=== PATIENT | female | born 1990 | race Caucasian/White ===

== ENCOUNTER 2018-09-20 17:08 | Emergency (ER) | payer OTHER ==
[2018-09-20 17:26] VITALS: BP 145/90
--- NOTE | 2018-09-20 18:12 | UC ---
Complaint Female HPI - HPI Summary HPI Summary: 28-year-old woman coming to clinic today with a chief complaint of dysuria and urinary frequency. Started in the last 24 hours. She has a history of recurrent urinary tract infections and this feels like a UTI. No fevers or chills no flank pain. Mild suprapubic cramping. She did try to drink plenty of fluids but the condition is not getting better. No concern of STI. - History Of Current Complaint Chief Complaint: UCGU Stated Complaint: POSS UTI Time Seen by Provider: 09/20/18 17:54 Hx Last Menstrual Period: [id number] Pain Intensity: 3 - Allergies/Home Medications Allergies/Adverse Reactions: Allergies Allergy/AdvReac Type Severity Reaction Status Date / Time No Known Allergies Allergy Verified 09/20/18 17:26 Home Medications: Home Medications Ibuprofen TAB* [Motrin TAB* 600 MG] 600 mg PO Q6H PRN 09/20/18 [History Confirmed 09/20/18] Nuvaring Vaginal Ring 1 09/20/18 [History] PMH/Surg Hx/FS Hx/Imm Hx Other GI/ History: recurrent UTIs - Surgical History Surgical History: Yes Surgery Procedure, Year, and Place: wisdom teeth - Family History Known Family History: Positive: None - Social History Alcohol Use: Daily Substance Use Type: None Smoking Status (MU): Never Smoked Tobacco Review of Systems Constitutional: Negative Skin: Negative Eyes: Negative ENT: Negative Respiratory: Negative Cardiovascular: Negative Gastrointestinal: Negative Genitourinary: Dysuria, Frequency, Urgency Motor: Negative Neurovascular: Negative Musculoskeletal: Negative Neurological: Negative Psychological: Negative Is Patient Immunocompromised?: No All Other Systems Reviewed And Are Negative: Yes Physical Exam Triage Information Reviewed: Yes Appearance: Well-Appearing, No Pain Distress, Well-Nourished Vital Signs: Initial Vital Signs Temp 98.0 F 09/20/18 17:23 Pulse 70 09/20/18 17:23 Resp 16 09/20/18 17:23 BP 145/90 09/20/18 17:23 Pulse Ox 100 09/20/18 17:23 Neck exam: Normal Neck: Positive: Supple Respiratory: Positive: No respiratory distress Abdomen Description: Positive: Nontender, Soft. Negative: CVA Tenderness (R), CVA Tenderness (L) Musculoskeletal Exam: Normal Musculoskeletal: Positive: Strength Intact, ROM Intact Neurological Exam: Normal Neurological: Positive: Alert, Muscle Tone Normal Psychological Exam: Normal Psychological: Positive: Age Appropriate Behavior Skin Exam: Normal Complaint Female Dx - Differential Dx/Diagnosis Provider Diagnoses: UTI Discharge - Sign-Out/Discharge Documenting (check all that apply): Patient Departure All imaging exams completed and their final reports reviewed: No Studies - Discharge Plan Condition: Stable Disposition: HOME Prescriptions: Sulfamethox/Trimethoprim DS* [Bactrim DS 800/160 TAB*] 1 tab PO BID #14 tab Patient Education Materials: Urinary Tract Infection in Women (ED) Referrals: Darvin De Anda MD [Primary Care Provider] - Additional Instructions: FOLLOW UP WITH YOUR DOCTOR IF NOT COMPLETELY IMPROVED. GET RECHECKED FOR ANY WORSENING OF YOUR CONDITION OR QUESTIONS OR CONCERNS. - Billing Disposition and Condition Condition: STABLE Disposition: Home
== END 2018-09-20 18:24 | disposition home or self-care (01) ==
LOC: UCEAST 17:08
DX: N39.0 Urinary tract infection, site not specified (principal)
CPT/HCPCS: 81003; 84702; 87086; 87088; 99212; G0463

== ENCOUNTER 2019-08-16 16:53 | Emergency (ER) | payer OTHER ==
[2019-08-16] MEDS ORDERED: EPINEPHRINE 1 MG/ML 1 ML VIAL IM ONE (16:58)
[2019-08-16] MEDS ORDERED: predniSONE TAB* 20 MG PO ONE (16:58)
[2019-08-16] MEDS ORDERED: hydrOXYzine HCL TAB* 25 MG PO ONE (16:59)
--- NOTE | 2019-08-16 17:09 | UC ---
Allergic Reaction HPI - HPI Summary HPI Summary: 29 yo female presents here <1 hr s/p bee sting to abd About 10 minutes post sting she developed a diffuse urticarial rash with pruritis no CP or SOB her throat feels tight her hands feel swollen no hx asthma no prior hx anaphylaxis to bee stings - History of Current Complaint Stated Complaint: ALLERGIC REACTION Time Seen by Provider: 08/16/19 16:56 Hx Obtained From: Patient Hx Last Menstrual Period: 07/12/19 Onset/Duration: Sudden Onset, Lasting Minutes Severity Initially: Mild Severity Currently: Moderate Pain Intensity: 3 Location: Diffuse Character: Swelling, Pruritus, Hives Aggravating Factor(s): Nothing Alleviating Factor(s): Nothing Associated Signs And Symptoms: Positive: Throat Tightening. Negative: Abdominal Pain, Chest Pain, Cough Wheezing, Diaphoresis, Difficulty Breathing, Hoarseness, Lightheadedness, Nausea, Rash, Syncope, Vomiting - Related Hx Possible Reaction To: Insect Prior Episode Dx as Allergic Reaction to: Same/Other: NONE - Allergies/Home Medications Allergies/Adverse Reactions: Allergies Allergy/AdvReac Type Severity Reaction Status Date / Time No Known Allergies Allergy Verified 08/16/19 17:01 Home Medications: Home Medications Ibuprofen TAB* [Advil TAB*] 400 mg PO Q4H PRN 08/16/19 [History Confirmed ] PMH/Surg Hx/FS Hx/Imm Hx Previously Healthy: Yes Cardiovascular History: Hypertension - WHITE COAT per pt - Surgical History Surgical History: Yes Surgery Procedure, Year, and Place: wisdom teeth - Family History Known Family History: Positive: None Negative: Cardiac Disease, Hypertension, Diabetes - Social History Alcohol Use: Daily Substance Use Type: None Smoking Status (MU): Never Smoked Tobacco Review of Systems All Other Systems Reviewed And Are Negative: Yes Constitutional: Positive: Negative Skin: Positive: Rash Eyes: Positive: Negative ENT: Positive: Negative Respiratory: Positive: Negative Cardiovascular: Positive: Negative Gastrointestinal: Positive: Negative Genitourinary: Positive: Negative Motor: Positive: Negative Neurovascular: Positive: Negative Musculoskeletal: Positive: Edema Neurological: Positive: Negative Psychological: Positive: Negative Physical Exam Triage Information Reviewed: Yes Appearance: Well-Appearing, No Pain Distress, Well-Nourished Vital Signs Reviewed: Yes Eyes: Positive: Conjunctiva Clear ENT: Positive: Hearing grossly normal, Uvula midline, Other - no periorbital edema, no lip or tongue edema. Negative: Nasal congestion, Nasal drainage, Tonsillar swelling, Tonsillar exudate, Hoarse voice Neck: Positive: Supple Respiratory: Positive: Lungs clear, Normal breath sounds, No respiratory distress Cardiovascular: Positive: RRR, No Murmur Musculoskeletal: Positive: ROM Intact, No Edema Neurological: Positive: Alert Psychological Exam: Normal Skin Exam: Normal Re-Evaluation - Re-Evaluation First Eval Re-Evaluation Time: 17:57 Change: Improved - itching gone, rash mostly gone, no throat tightness Allergic Reaction Course/Dx - Differential Dx/Diagnosis Provider Diagnosis: Anaphylactic reaction to bee sting Discharge ED - Sign-Out/Discharge Documenting (check all that apply): Patient Departure All imaging exams completed and their final reports reviewed: No Studies - Discharge Plan Condition: Improved Disposition: HOME Prescriptions: EPINEPHrine [Epipen 2-Ajay] 0.3 mg IM ONCE PRN #1 inj PRN Reason: Allergy Symptoms hydrOXYzine HCL TAB* [Atarax TAB*] 25 - 50 mg PO QID PRN #10 tab PRN Reason: Itching predniSONE [Deltasone 20 MG TAB] 40 mg PO DAILY #6 tab Patient Education Materials: Anaphylaxis (ED) Forms: *Work Release Referrals: Darvin De Anda MD [Primary Care Provider] - If Needed Philip Young MD [Medical Doctor] - As Soon As Possible Dalton Doe MD [Medical Doctor] - As Soon As Possible Additional Instructions: rest recheck for new symptoms I suggest you take the atarax 1-2 pills 4 x day through tomorrow take prednisone as directed read up on how to use the epi pen Use for for severe allergic rx (tight throat/swollen tongue or lips/wheezing/ shortness or breath) I suggest you follow up with one of the allergists list They may be able to desensitize you to bee stings I will be here until 10 PM tonight any questions or concerns please call [phone] - Billing Disposition and Condition Condition: IMPROVED Disposition: Home
[2019-08-16 17:59] VITALS: BP 159/103
== END 2019-08-16 18:10 | disposition home or self-care (01) ==
LOC: UCEAST 16:53
DX: T63.441A Toxic effect of venom of bees, accidental (unintentional), initial encounter (principal); T78.2XXA Anaphylactic shock, unspecified, initial encounter; Y92.9 Unspecified place or not applicable; I10 Essential (primary) hypertension
CPT/HCPCS: 96372; 99212; A9270-GY; G0463; J7512